=== PATIENT | male | born 1960 | race Caucasian/White ===

== ENCOUNTER → 2017-10-30 | Outpatient (CLI) | payer OTHER ==
[~2017-10-30] MED LIST: CHOL5000 PO; FLUT1INH INH; FLUT50SP EACH NARE; MONT10TA4 PO; OLOP0.15 NASAL
[2017-10-30 12:01] LABS: AUTOMATED NEUTROPHIL # 3.6 TH/MM3 (1.8-7.7); BASOPHIL # 0.1 TH/MM3 (0-0.2); BASOPHIL % 1.2 % (0.0-2.0); EOSINOPHIL # 0.1 TH/MM3 (0-0.4); EOSINOPHIL % 1.5 % (0.0-4.0); HEMATOCRIT 48.2 % (39.0-51.0); HEMOGLOBIN 16.2 GM/DL (13.0-17.0); LYMPH % 27.4 % (9.0-44.0); LYMPHOCYTE # 1.7 TH/MM3 (1.0-4.8); MEAN CELL VOLUME 88.5 FL (80.0-100.0); MEAN CORPUSCULAR HEMOGLOBIN 29.8 PG (27.0-34.0); MEAN CORPUSCULAR HGB CONC 33.7 % (32.0-36.0); MEAN PLATELET VOLUME 7.3 FL (7.0-11.0); MONO % 9.5 % (0.0-8.0); MONOCYTE # 0.6 TH/MM3 (0-0.9); NEUT % 60.4 % (16.0-70.0); PLATELET COUNT 242 TH/MM3 (150-450); RED BLOOD COUNT 5.45 MIL/MM3 (4.50-5.90); RED CELL DISTRIBUTION WIDTH 12.9 % (11.6-17.2); WHITE BLOOD COUNT 6.1 TH/MM3 (4.0-11.0)
--- NOTE | 2017-10-30 14:07 | EKG ---
Date Performed: 10/30/2017 Time Performed: 11:35:40 PTAGE: 57 years EKG: Sinus rhythm NORMAL ECG NO PREVIOUS TRACING DOCTOR: Daniel Romano Interpretating Date/Time 10/30/2017 14:02:50
== END ==
LOC: PHPRE 10:59
PROVIDERS: ATTEND Orthopaedic Surgery
DX: Z01.810 Encounter for preprocedural cardiovascular examination (principal); Z01.812 Encounter for preprocedural laboratory examination; S83.282D Other tear of lateral meniscus, current injury, left knee, subsequent encounter; S83.242D Other tear of medial meniscus, current injury, left knee, subsequent encounter
CPT/HCPCS: 36415; 85025; 93005

== ENCOUNTER → 2017-11-09 | Day surgery (SDC) | payer OTHER ==
[~2017-11-09] VITALS: Ht 170.2 cm; Wt 82.0 kg
[~2017-11-09] MED LIST changes: +APREPITANT 40 MG CAP ONE; +CHLORHEXIDINE GLUCONATE 2 % 1 PACK (2 CLOTHS) TOPICAL PRN; +CHLORHEXIDINE GLUCONATE 4% SOLN 120 ML BTL TOPICAL SCH; +INSULIN HUMAN REGULAR 1,000 UNITS/10 ML VIAL SQ PRN; +LACTATED RINGER'S 1000 ML IV PRN; +METOPROLOL TARTRATE 25 MG TAB PO PRN; +MIDAZOLAM HCL 2 MG/2 ML VIAL ONE; +POVIDONE IODINE 5% (ANTISEPSIS KIT) 4 APPLICATIONS EACH NARE PRN; +SODIUM CHLORID 0.9% 500 ML IV PRN; +TRIAMCINOLONE ACETONIDE 40 MG/ML VIAL ONE
[2017-11-09] MEDS: BUPIVACAINE/EPINEPHRINE 0.75% PF 30 ML VIAL ONE ×2 (12:50→13:03)
[2017-11-09 13:20] VITALS: PULSE 69
--- NOTE | 2017-11-09 13:22 | MP ---
cc: Jared Ibrahim MD DATE OF OPERATION: 11/09/2017 DATE OF SURGERY: 11/09/2017 SURGEON: Jared Ibrahim MD PREOPERATIVE DIAGNOSIS: Tear of medial and lateral meniscus. POSTOPERATIVE DIAGNOSES: 1. Tear of medial and lateral meniscus. 2. Chondromalacia medial femoral condyle. PROCEDURE PERFORMED: 1. Arthroscopic subtotal medial and lateral meniscectomy. 2. Medial femoral chondroplasty, left knee joint. DETAILS OF PROCEDURE: The patient was placed on the operating table in supine position. Adequate general anesthesia was administered by the anesthesiologist. The left knee was prepped and draped in the usual sterile fashion. After a timeout was called, the patient did have name, procedure and location fully confirmed. A lateral portal was used for introduction of the scope and examination of the knee joint revealed intact cruciate ligaments, the patellofemoral joint unremarkable and the medial compartment showed a posterior horn complex tearing accompanied by a chondromalacia of the medial femoral condyle. A shaver was placed into the medial compartment and a chondroplasty performed as well as subtotal medial meniscectomy. This was supplemented by hand punches. The lateral compartment revealed tearing of the anterior horn of the lateral meniscus and this was removed with the same resector. The articular surfaces appeared to be satisfactorily preserved. No evidence of loose bodies were present. All instruments were removed after thorough aspiration and the stab wounds were closed with simple 3-0 nylon suture. An intraarticular injection of 10 mL of 0.75% Marcaine along with epinephrine was instilled within the knee joint for postoperative pain management. A bulky dressing was applied around the knee joint, following which the tourniquet was deflated after a total of 20 minutes. Sponge count, needle counts and instrument counts were reportedly correct x2. The procedure was tolerated well and without complications. ESTIMATED BLOOD LOSS: Nil. Jared Ibrahim MD [facility] , 01:04 PM , 01:21 PM
[2017-11-09 14:45] VITALS: BP 109/60; PULSE 70; RESP 16; TEMP 97.7; O2SAT 99
== END | disposition home or self-care (01) ==
LOC: PHSDC 08:28 → EDUNIT# 10:30
PROVIDERS: ATTEND Orthopaedic Surgery
DX: S83.242A Other tear of medial meniscus, current injury, left knee, initial encounter (principal); S83.282A Other tear of lateral meniscus, current injury, left knee, initial encounter; M94.262 Chondromalacia, left knee; J44.9 Chronic obstructive pulmonary disease, unspecified; W19.XXXA Unspecified fall, initial encounter
CPT/HCPCS: 01400; 29880; J2250; J3010; J7120; J8501; J3301